=== PATIENT | male | born 1970 | race Caucasian/White ===

== ENCOUNTER 2018-06-02 18:11 | Inpatient (IN) ==
[2018-06-02] MEDS ORDERED: DUONEB (A & A) INH ONE (18:17)
[2018-06-02] MEDS ORDERED: ALBUTEROL NEB INH ONE ×2 (18:32→18:33)
[2018-06-02] MEDS ORDERED: SOLU-MEDROL IV ONE (18:33)
[2018-06-02 19:05] LABS: AGAP 14; ALBUMIN 4.7 g/dL (3.5-5.0); ALKALINE PHOSPHATASE 77 U/L (32-122); BUN 20 mg/dL (8-22); CALCIUM 9.5 mg/dL (8.8-10.2); CHLORIDE 102 mmol/L (98-107); COSMO 284; ESTIMATED GFR > 60; GLUCOSE 103 mg/dL (70-104); GOT 24 U/L (10-34); GPT 22 U/L (10-44); POTASSIUM 4.1 mmol/L (3.5-5.1); SODIUM 141 mmol/L (136-145); TCO2 26 mmol/L (25-35); TOTAL PROTEIN 7.3 g/dL (6.3-8.3)
[2018-06-02 19:06] LABS: CK PROFILE 265 U/L (24-204)
[2018-06-02 19:14] LABS: INFLUENZA A NEGATIVE (NEGATIVE); INFLUENZA B NEGATIVE (NEGATIVE)
[2018-06-02 19:17] LABS: BASO# 0.08 X1000 (0.0-0.2); BASO% 0.6 % (0.0-0.8); EOS# 0.62 X1000 (0.0-0.7); EOS% 4.9 % (0.0-10.0); HEMATOCRIT 43.4 % (42.0-52.0); HEMOGLOBIN 15.1 g/dL (14.0-18.0); IMM GRAN# 0.02 X1000 (0.0-0.04); IMM GRAN% 0.2 % (0.0-0.5); LYMPH% 18.3 % (20.5-51.1); MCH 28.4 PG (27-31); MCHC 34.8 g/dL (33-37); MCV 81.6 FL (81-99); MONO# 0.66 X1000 (0.11-0.59); MONO% 5.2 % (1.7-9.3); MPV 9.5 FL (7.4-10.4); NEUT# 8.92 X1000 (1.4-6.5); NEUT% 70.8 % (42.2-75.2); PLT 325 X1000 (130-400); RBC 5.32 XMIL (4.7-6.1)
[2018-06-02 19:23] LABS: CK INDEX 2.7 (0.0-2.5); CK-MB 7.25 ng/mL (0.0-5.0)
--- NOTE | 2018-06-02 19:28 | Diag Imaging Result Doc PS360 ---
EXAM: CHEST-2 VIEWS 06/02/2018 HISTORY: cough TECHNIQUE: PA and lateral chest COMMENT: There is minimal increased opacity in the right lower lobe compared to the previous study of 05/18/2018. Otherwise there has been no significant change. IMPRESSION: Atelectasis versus bronchopneumonia right lower lobe. Electronically signed by Carlos Og 06/02/2018 7:25 PM
--- NOTE | 2018-06-02 20:55 | EKG Report ---
Test Performed on : 06/02/2018 6:37:36 PM Test Reason : Blood Pressure : / mmHG Vent. Rate : 093 BPM Atrial Rate : 093 BPM P-R Int : 140 ms QRS Dur : 086 ms QT Int : 354 ms P-R-T Axes : 082 062 056 degrees QTc Int : 440 ms Normal sinus rhythm. Normal ECG When compared with ECG of 18-MAY-2018 21:33, (Unconfirmed) No significant change was found Unconfirmed Result
[2018-06-02] MEDS ORDERED: LEVAQUIN 750 MG/D5W 750 MG/150 ML IVPB IV ONE (21:24)
[2018-06-02] MEDS ORDERED: TYLENOL PO PRN (21:25)
[2018-06-02] MEDS ORDERED: ZOFRAN IV PRN (21:25)
[2018-06-02] MEDS: DUONEB (A & A) INH SCH (23:19)
[2018-06-03] MEDS: DUONEB (A & A) INH SCH ×6 (03:15→23:40)
[2018-06-03] MEDS ORDERED: SOLU-MEDROL IV SCH (09:00)
--- NOTE | 2018-06-03 10:49 | HISTORY AND PHYSICAL ---
PRIMARY CARE PHYSICIAN: None. CHIEF COMPLAINT: Shortness of breath and a cough that had progressively worsened over the last couple of days. HISTORY OF PRESENTING ILLNESS: This is a 48-year-old, male who presents to [facility] ER with complaints of shortness of breath and cough for 2 days that had progressively worsened. States that he was in the hospital at [facility] in September of 2017 for an asthma exacerbation that required intubation. At discharge, he was supposed to have a prescription for Symbicort and to follow up with Dr. Marshall. [facility] but he did not do any of those followups due to financial constraints and states that he would like to have help with his medications at discharge. His hospitalization last time in September of 2017 required intubation shortly for respiratory distress. Currently, he is saturating 96-98% on nasal cannula. He had a chest x-ray that showed atelectasis versus a bronchopneumonia in the right lower lobe. He has wheezing posteriorly throughout the entire lung espinoza so he has been admitted for further evaluation and treatment. PAST MEDICAL HISTORY: Asthma. PAST SURGICAL HISTORY: Appendectomy and a left knee surgery. FAMILY HISTORY: Asthma. SOCIAL HISTORY: He currently lives with family. Denies any tobacco, alcohol, or illicit drug use. ALLERGIES: Penicillin. HOME MEDICATIONS: He takes DuoNebs q.6 hours and that will be held. LABORATORY DATA: Showed a white blood cell count of 12.60, hemoglobin 15.1, hematocrit 43.4, platelets 325,000. Sodium 141, potassium 4.1, chloride 102, CO2 26, BUN of 20, creatinine 1, glucose 103. Creatine kinase was 265, CK-MB of 7.25, troponin less than 0.010. Influenza A and B were both negative. Chest x-ray showed atelectasis versus a bronchopneumonia in the right lower lobe. EKG showed normal sinus rhythm at 93. REVIEW OF SYSTEMS: He denied any fever, chills, blurred vision, dizziness, or chest pain. He has had a nonproductive cough and shortness of breath. Denied any abdominal pain, constipation, diarrhea, burning or hurting with urination. PHYSICAL EXAMINATION: VITAL SIGNS: On arrival, he had a temperature of 98.6 degrees, a pulse of 114, respirations 24, blood pressure 135/76, saturating 96% on room air. GENERAL: This is a 48-year-old, male who is sitting up in the bed and answers questions appropriately. HEENT: Normocephalic, atraumatic. Normal ENT inspection. Oropharynx and nares are clear. Eyes: Pupils are equal, round, and reactive to light and accommodation. Extraocular movements are intact. NECK: Normal inspection. Normal range of motion. LUNGS: With wheezing throughout entire posterior lung espinoza. Equal lung expansion. Chest wall movement noted. HEART: With regular rate and rhythm. No murmurs, rubs, or gallops. ABDOMEN: Soft, nontender, nondistended. Bowel sounds are present x4 quadrants. MUSCULOSKELETAL: He has 5/5 strength x4 extremities. NEUROLOGICAL: The cranial nerves 2-12 are grossly intact. ASSESSMENT: 1. Right lower lobe bronchopneumonia. 2. An acute asthma exacerbation. 3. Dyspnea. PLAN: He was admitted to the medical unit at [place]. Placed on telemetry, regular diet. Blood cultures x2 are pending. DuoNebs q.4 hours and q.2 p.r.n., Solu-Medrol 80 mg IV q.8 and we will wean as he improves, Zofran 4 mg IV q.4 hours p.r.n., Rocephin 1 gram IV q.24, azithromycin 500 mg IV q.24. Further orders after seen by attending. Dictated by CABRERA Kimble for Jeremiah Fair MD cc: CABRERA Kimble MD
[2018-06-03] MEDS ORDERED: DUONEB (A & A) INH PRN (11:12)
[2018-06-03] MEDS: ROCEPHIN 1 GM in NS 50 ML IV SCH (11:13)
[2018-06-03] MEDS: ZITHROMAX 500 MG/NS 500 MG/250 ML IVPB IV SCH (11:49)
[2018-06-03] MEDS: SOLU-MEDROL IV SCH (19:31)
--- NOTE | 2018-06-03 23:54 | HISTORY AND PHYSICAL ---
HISTORY AND PHYSICAL ADDENDUM: The patient presented with cough and shortness of breath. He has a history of asthma. He had severe shortness of breath. He has been seen. He is not on regular medications. Symbicort never got filled. He did not follow up. I think there were some insurance issues or affordability. He was admitted for right lower lobe bronchopneumonia and asthma exacerbation. This evening, he sounds very clear. I am going to decrease his steroids because it seems like he has improved. We will continue breathing treatments, encourage compliance. Social Work is working with him to get him set up with his DuoNebs. Symbicort may not be an option because he may not be able to afford that. However, we will see how things look. DISPOSITION: Pending his clinical status. We will continue to monitor, but hopefully he will be here a day or 2. This is a [id number] encounter note with Herminia Maynard. cc: Jeremiah Fair MD
[2018-06-04] MEDS: SOLU-MEDROL IV SCH ×2 (02:57→11:29)
[2018-06-04] MEDS: DUONEB (A & A) INH SCH ×3 (03:01→11:14)
[2018-06-04] MEDS ORDERED: LOVENOX SUBQ SCH (06:00)
[2018-06-04 06:34] LABS: HEMATOCRIT 40.9 % (42.0-52.0); HEMOGLOBIN 13.7 g/dL (14.0-18.0); IMM GRAN# 0.06 X1000 (0.0-0.04); IMM GRAN% 0.3 % (0.0-0.5); LYMPH# 0.63 X1000 (1.2-3.4); MCHC 33.5 g/dL (33-37); MCV 83.6 FL (81-99); MONO# 0.26 X1000 (0.11-0.59); MONO% 1.2 % (1.7-9.3); MPV 9.9 FL (7.4-10.4); NEUT% 95.5 % (42.2-75.2); PLT 316 X1000 (130-400); RBC 4.89 XMIL (4.7-6.1); RDW 13.4 % (11.5-14.5); WBC 21.05 X1000 (4.8-10.8)
[2018-06-04 06:41] LABS: AGAP 12; BUN 22 mg/dL (8-22); CHLORIDE 104 mmol/L (98-107); COSMO 286; CREATININE 0.8 mg/dL (0.7-1.2); ESTIMATED GFR > 60; GLUCOSE 155 mg/dL (70-104); POTASSIUM 4.5 mmol/L (3.5-5.1); SODIUM 140 mmol/L (136-145); TCO2 24 mmol/L (25-35)
[2018-06-04] MEDS ORDERED: PRILOSEC PO SCH (07:00)
[2018-06-04 08:07] LABS: LYMPHS 3 % (21-51); MONO 1 % (1-9); SEGS 96 % (42-75)
[2018-06-04] MEDS: ROCEPHIN 1 GM in NS 50 ML IV SCH (09:15)
[2018-06-04] MEDS: ZITHROMAX 500 MG/NS 500 MG/250 ML IVPB IV SCH (11:30)
[2018-06-04 15:04] VITALS: BP 140/74
--- NOTE | 2018-06-05 05:14 | DISCHARGE SUMMARY ---
ADMISSION DATE: 06/02/2018 DISCHARGE DATE: 06/04/2018 DISPOSITION: Home. FOLLOW-UP: Follow up with [*]the patient's PCP. CONSULTATION DURING THIS ADMISSION: None. IMAGING STUDIES OF SIGNIFICANCE: Chest x-ray did show atelectasis versus bronchopneumonia right lower lobe. ASSESSMENT: 1. Right lower lobe bronchopneumonia. 2. Acute exacerbation of asthma. 3. Intermittent asthma. 4. Leukocytosis. DISCHARGE MEDICATIONS: 1. Albuterol nebulizers. 2. Azithromycin 250 p.o. daily. 3. Prednisone 20 mg daily. 4. ProAir inhaler. PRESENTING COMPLAINT: Shortness of breath. HISTORY OF PRESENTING COMPLAINT: Mr. Sánchez is a 48-year-old male with a history of asthma which he rarely gets exacerbation, maybe once per every other month. The patient came to this to the hospital mainly because of progressively worsening shortness of breath and cough, was evaluated, found to have a right lower lobe bronchopneumonia, was admitted for further medical care. HOSPITAL COURSE: Mr. Sánchez was admitted to the medical floor. He did respond appropriately to management including bronchodilation therapy, steroids and antibiotics. Today he refers to feel a whole lot better, very minimum wheezing on his physical examinations, but otherwise he is tolerating his diet and he is not on any supplemental oxygen. He is deemed stable for discharge today, and he has been advised to follow up with a primary care doctor. All the discharge instructions have also been discussed with him and he voiced understanding. Mr. Sánchez is also advised to come to the ER or call 911 if his condition deteriorates. At the time of discharge his vitals, blood pressure is 140/74, pulse is 102, respirations 18, temperature is 97.9 degrees. Physical examination is completely unremarkable except for some faint distant wheezing in both posterior lung espinoza. TIME SPENT: For discharge is 36 minutes. cc: Martin Story MD
== END 2018-06-04 15:37 | disposition home or self-care (01) | DRG 202 ==
LOC: P.ED 18:11 → P.MEDSURG 23:11 → SUATTDRO 23:11 → P.MEDSURG 23:31
PROVIDERS: ATTEND Internal Medicine
CPT/HCPCS: 36415; 71020; 71046; 80048; 80053; 82550; 82553; 84484; 85025; 87040; 87275; 87276; 87804; 93005; 94640; 94761; 94799; 96365; 96375; 99285; A9270; J0456; J0696; J1650; J1956; J2930

== ENCOUNTER 2018-06-26 16:06 | Inpatient (IN) ==
[2018-06-26] MEDS ORDERED: DUONEB (A & A) INH ONE (16:38)
[2018-06-26] MEDS ORDERED: SOLU-MEDROL IV ONE (16:40)
[2018-06-26 17:04] LABS: BASO# 0.08 X1000 (0.0-0.2); BASO% 0.5 % (0.0-0.8); EOS# 0.85 X1000 (0.0-0.7); EOS% 5.3 % (0.0-10.0); HEMATOCRIT 45.8 % (42.0-52.0); HEMOGLOBIN 15.7 g/dL (14.0-18.0); IMM GRAN# 0.03 X1000 (0.0-0.04); IMM GRAN% 0.2 % (0.0-0.5); LYMPH# 2.94 X1000 (1.2-3.4); LYMPH% 18.5 % (20.5-51.1); MCH 27.9 PG (27-31); MCHC 34.3 g/dL (33-37); MCV 81.3 FL (81-99); MONO# 1.05 X1000 (0.11-0.59); MONO% 6.6 % (1.7-9.3); MPV 9.3 FL (7.4-10.4); NEUT# 10.96 X1000 (1.4-6.5); NEUT% 68.9 % (42.2-75.2); PLT 413 X1000 (130-400); RBC 5.63 XMIL (4.7-6.1); WBC 15.91 X1000 (4.8-10.8)
--- NOTE | 2018-06-26 17:23 | Diag Imaging Result Doc PS360 ---
CHEST-PORTABLE - 06/26/2018 INDICATION: shortness of breath COMPARISON: 06/02/2018 FINDINGS: The lungs are normally expanded and clear. Heart size and mediastinal contours are normal. No pneumothorax or pleural effusion. IMPRESSION: Negative exam. Electronically signed by Vito Real 06/26/2018 5:21 PM
[2018-06-26 17:33] LABS: INFLUENZA A NEGATIVE (NEGATIVE); INFLUENZA B NEGATIVE (NEGATIVE)
[2018-06-26 17:33] LABS: AGAP 14; ALBUMIN 4.9 g/dL (3.5-5.0); ALKALINE PHOSPHATASE 80 U/L (32-122); BUN 17 mg/dL (8-22); CALCIUM 9.7 mg/dL (8.8-10.2); CHLORIDE 99 mmol/L (98-107); CK PROFILE 199 U/L (24-204); COSMO 283; CREATININE 0.9 mg/dL (0.7-1.2); ESTIMATED GFR > 60; GLUCOSE 110 mg/dL (70-104); GOT 20 U/L (10-34); GPT 22 U/L (10-44); POTASSIUM 4.5 mmol/L (3.5-5.1); SODIUM 141 mmol/L (136-145); TCO2 28 mmol/L (25-35); TOTAL PROTEIN 7.4 g/dL (6.3-8.3)
[2018-06-26] MEDS ORDERED: ALBUTEROL NEB INH ONE ×2 (17:36→17:46)
[2018-06-26 18:51] LABS: BILIRUBIN URINE NEGATIVE (NEGATIVE); BLOOD URINE TRACE (NEGATIVE); CLARITY CLEAR (CLEAR); COLOR YELLOW; GLUCOSE URINE NEGATIVE (NEGATIVE); KETONE URINE NEGATIVE (NEGATIVE); LEUKOCYTES URINE NEGATIVE (NEGATIVE); NITRITE URINE NEGATIVE (NEGATIVE); PH URINE 6.5; PROTEIN URINE TRACE mg/dL (NEGATIVE); SP GRAVITY URINE 1.025; UROBILINOGEN URINE NORMAL
[2018-06-26 18:52] LABS: URINE BACTERIA 1+ /HFP; URINE CAST NONE SEEN /LPF; URINE CRYSTAL NONE SEEN /HPF; URINE EPITHELIAL CELLS <10 /HPF (<10); URINE RBC <10 /HPF (<10); URINE SOURCE CLEAN CATCH; URINE YEAST NONE SEEN /HPF
[2018-06-26] MEDS ORDERED: ZOFRAN IV PRN (20:09)
[2018-06-26] MEDS ORDERED: TYLENOL PO PRN (20:09)
[2018-06-26] MEDS ORDERED: ZOFRAN ODT PO PRN (20:09)
[2018-06-26] MEDS ORDERED: DUONEB (A & A) INH PRN (20:10)
[2018-06-26] MEDS ORDERED: NS 1,000 ML IV SCH (20:15)
[2018-06-26] MEDS: SOLU-MEDROL IV SCH (20:30)
--- NOTE | 2018-06-26 20:54 | PROVIDER DOCUMENTATION ---
This chart was entered by Heena Kulkarni Scribe, acting as scribe for Hema Stanley MD. HPI-Respiratory General - General Chief Complaint: Asthma Attack Stated Complaint: ASTHMA Time Seen by Provider: 06/26/18 16:14 Source: patient Allergies/Adverse Reactions: Patient Allergies Allergy/AdvReac Type Severity Reaction Status Date / Time Penicillins Allergy Mild Unknown Verified 09/29/17 08:56 Home Medications: Home Medication List Medication Instructions Recorded Confirmed Last Taken Type Albuterol 2.5MG/Ipratrop 0.5MG 3 ml INH RTQ6H 1 Days #120 neb 06/04/18 Unknown Rx [Duoneb (A & A)] Albuterol Sulfate [Proair Hfa] 8.5 gm IH Q4HR PRN #1 hfa.aer.ad 06/04/18 Unknown Rx Azithromycin [Zithromax] 250 mg PO DAILY #5 tab 06/04/18 Unknown Rx Prednisone [Deltasone] 20 mg PO DAILY #5 tab 06/04/18 Unknown Rx - History of Present Illness-Resp Nature of Presenting Problem: 48 yom presents to the ed with c/o sob and asthma sx worsening. pt sts has been using inhalers but has not helped his sx. pt sts onset was 3 days prior Quality of Pain: reports: none Severity in ED: reports: moderate Onset/Duration: reports: 3 days ago Timing: reports: still present, intermittent Exposure: reports: unknown cause Cough Quality/Degree: reports: mild Episode Frequency: frequent episodes Current Respiratory Medication Therapy: Initiated see nurses note Modifying Factors: worse with: exertion Associated Symptoms: reports: cough, hyperventilating, shortness of breath. denies: chest pain/soreness, dizziness, fever/chills, headache Similar Symptoms Previously?: Yes Recently seen or treated by another doctor?: No Review of Systems - Adult - REVIEW OF SYSTEMS - ADULT Constitutional: denies: chills, fever Eyes: denies: blurred vision, double vision Ears, Nose, Mouth & Throat: reports: no symptoms reported Cardiovascular: denies: chest pain, palpitations Respiratory: reports: see HPI, cough, dyspnea on exertion, shortness of breath. denies: wheezing Gastrointestinal: denies: abdominal pain, diarrhea, nausea, vomiting Genitourinary: reports: no symptoms reported Musculoskeletal: denies: back pain, neck pain Integumentary: reports: no symptoms reported Neurological: denies: dizziness/vertigo, headache/migraines Psychiatric: reports: no symptoms reported Endocrine: reports: no symptoms reported Hematologic/Lymphatic: reports: no symptoms reported Allergic/Immunologic: reports: see HPI, asthma All Other Systems: Reviewed and Negative Past History - Adult - PAST MEDICAL HISTORY-ADULT Review of Records: reports: Old Records Reviewed, Nursing Assessment Review, Medications Reviewed, Social history reviewed & non-contributory. Major Childhood Illnesses: reports: denies history Cardiovascular: reports: denies history Respiratory: reports: asthma Gastrointestinal: reports: denies history Genitourinary: reports: denies history Musculoskeletal: reports: denies history Hand Dominance: Right Handed Neurological: reports: denies history Endocrine/Immune: reports: denies history Other Conditions: reports: denies history - PRIOR SURGERIES/PROCEDURES Surgical/Procedure History: reports: appendectomy, orthopedic (extremity), other (left lower leg wound several years ago) - IMMUNIZATION STATUS Childhood Immunizations: See Nurse Assessment Flu Vaccine: See Nurse Assessment - FAMILY HISTORY Family History: reviewed, not pertinent - SOCIAL HISTORY Smoking: denies Substance Use: denies Living Situation: family Physical Exam-General - PHYSICAL EXAM-ADULT Initial Vital Signs Reviewed: Yes - CONSTITUTIONAL General Appearance: alert, severe distress - EYES Eyes: PERRL/EOMI, pink conjunctivae - HEAD, EARS, NOSE, MOUTH & THROAT HENMT: normocephalic/atraumatic, moist mucous membranes - NECK Neck: full range of motion, supple, normal inspection - RESPIRATORY Respiratory: chest non-tender, respiratory distress, decreased breath sounds, accessory muscle use, increased rate - CARDIOVASCULAR Cardiovascular: normal peripheral pulses, tachycardia (120) - GASTROINTESTINAL (ABDOMEN) Abdominal Exam: normal bowel sounds, non tender, soft - LYMPHATIC Lymphatic: no adenopathy - MUSCULOSKELETAL Back Exam: normal inspection, no CVA tenderness, no vertebral tenderness Extremity: normal range of motion, non-tender, normal gait - SKIN Integumentary: normal color, normal turgor, warm/dry - NEUROLOGIC Neurologic: grossly normal, no motor/sensory deficits - PSYCHIATRIC Psych/Mental Status: normal mood/affect, normal thought content, normal thought process, oriented x 3 Progress - PLAN OF CARE/RESULTS Progress/Plan/Lab Results: Vital Signs - 8 hr 06/26/18 16:09 06/26/18 16:39 06/26/18 17:23 Temperature 98.5 F Pulse Rate 120 H 128 H 129 H Respiratory Rate 16 16 17 Blood Pressure 178/90 185/124 121/101 O2 Sat by Pulse Oximetry 91 L 98 93 L 06/26/18 17:25 06/26/18 17:45 06/26/18 17:52 Temperature Pulse Rate 106 H 117 H 122 H Respiratory Rate 26 H 22 20 Blood Pressure 146/96 O2 Sat by Pulse Oximetry 94 L 95 06/26/18 18:16 06/26/18 19:09 06/26/18 19:53 Temperature Pulse Rate 128 H 134 H 121 H Respiratory Rate 14 27 H 27 H Blood Pressure 145/120 127/100 130/94 O2 Sat by Pulse Oximetry 95 93 L 93 L Laboratory Results - last 24 hr 06/26/18 06/26/18 06/26/18 16:49 16:52 16:52 WBC 15.91 H RBC 5.63 Hgb 15.7 Hct 45.8 MCV 81.3 MCH 27.9 MCHC 34.3 RDW Std Deviation 13.0 Plt Count 413 H MPV 9.3 Immature Gran % (Auto) 0.2 Neut % (Auto) 68.9 Lymph % (Auto) 18.5 L [place] % (Auto) 6.6 Eos % (Auto) 5.3 Baso % (Auto) 0.5 Immature Gran # (Auto) 0.03 Neut # (Auto) 10.96 H Lymph # (Auto) 2.94 [place] # (Auto) 1.05 H Eos # (Auto) 0.85 H Baso # (Auto) 0.08 Sodium 141 Potassium 4.5 Chloride 99 Carbon Dioxide 28 Anion Gap 14 BUN 17 Creatinine 0.9 Estimated GFR/1.73 m2 > 60 BUN/Creatinine Ratio 19 Glucose 110 H Calculated Osmolality 283 Calcium 9.7 Total Bilirubin 0.50 AST 20 ALT 22 Alkaline Phosphatase 80 Creatine Kinase 199 Troponin T Ngt-A-Dolbsabsica Pept Total Protein 7.4 Albumin 4.9 Globulin 3.0 Albumin/Globulin Ratio 2.0 Plasma Lactate Urine Source Urine Color Urine Clarity Urine pH Ur Specific [place] Urine Protein Urine Ketones Urine Blood Urine Nitrite Urine Bilirubin Urine Urobilinogen Urine Microscopic RBC Urine WBC Ur Epithelial Cells Urine Crystals Urine Bacteria Urine Casts Urine Yeast Urine Glucose Influenza A (Rapid) NEGATIVE Influenza B (Rapid) NEGATIVE 06/26/18 06/26/18 06/26/18 16:52 16:52 16:52 WBC RBC Hgb Hct MCV MCH MCHC RDW Std Deviation Plt Count MPV Immature Gran % (Auto) Neut % (Auto) Lymph % (Auto) [place] % (Auto) Eos % (Auto) Baso % (Auto) Immature Gran # (Auto) Neut # (Auto) Lymph # (Auto) [place] # (Auto) Eos # (Auto) Baso # (Auto) Sodium Potassium Chloride Carbon Dioxide Anion Gap BUN Creatinine Estimated GFR/1.73 m2 BUN/Creatinine Ratio Glucose Calculated Osmolality Calcium Total Bilirubin AST ALT Alkaline Phosphatase Creatine Kinase Troponin T < 0.010 Gno-V-Ppcweiwetvd Pept 31 Total Protein Albumin Globulin Albumin/Globulin Ratio Plasma Lactate 1.8 Urine Source Urine Color Urine Clarity Urine pH Ur Specific [place] Urine Protein Urine Ketones Urine Blood Urine Nitrite Urine Bilirubin Urine Urobilinogen Urine Microscopic RBC Urine WBC Ur Epithelial Cells Urine Crystals Urine Bacteria Urine Casts Urine Yeast Urine Glucose Influenza A (Rapid) Influenza B (Rapid) 06/26/18 18:15 WBC RBC Hgb Hct MCV MCH MCHC RDW Std Deviation Plt Count MPV Immature Gran % (Auto) Neut % (Auto) Lymph % (Auto) [place] % (Auto) Eos % (Auto) Baso % (Auto) Immature Gran # (Auto) Neut # (Auto) Lymph # (Auto) [place] # (Auto) Eos # (Auto) Baso # (Auto) Sodium Potassium Chloride Carbon Dioxide Anion Gap BUN Creatinine Estimated GFR/1.73 m2 BUN/Creatinine Ratio Glucose Calculated Osmolality Calcium Total Bilirubin AST ALT Alkaline Phosphatase Creatine Kinase Troponin T Rtj-V-Puougrecujm Pept Total Protein Albumin Globulin Albumin/Globulin Ratio Plasma Lactate Urine Source CLEAN CATCH Urine Color YELLOW Urine Clarity CLEAR Urine pH 6.5 Ur Specific [place] 1.025 Urine Protein TRACE A Urine Ketones NEGATIVE Urine Blood TRACE Urine Nitrite NEGATIVE Urine Bilirubin NEGATIVE Urine Urobilinogen NORMAL Urine Microscopic RBC <10 Urine WBC NEGATIVE Ur Epithelial Cells <10 Urine Crystals NONE SEEN Urine Bacteria 1+ Urine Casts NONE SEEN Urine Yeast NONE SEEN Urine Glucose NEGATIVE Influenza A (Rapid) Influenza B (Rapid) Orders Category Date Time Status Admit - [facility] Routine AdmDCTranf 06/26/18 20:07 Active Activity - Up with Assistance ORDERED Care 06/26/18 20:07 Active Cardiac Monitoring DIRECTED Care 06/26/18 18:01 Active Intake and Output-Strict ORDERED Care 06/26/18 20:07 Active Notify MD of + Sepsis Screen NOW Care 06/26/18 18:01 Active Notify Physician As Ordered Care 06/26/18 18:01 Active Saline Loc DIRECTED Care 06/26/18 20:07 Active Turn, Cough and Deep Breathe Q4HR.AWAKE Care 06/26/18 20:07 Active Vital Signs Order Q 8-HR ASSESS Care 06/26/18 20:07 Active Z-Document. for Tele Applied ORDERED Care 06/26/18 20:08 Active Regular Diet Diet 06/26/18 20:08 Active CHEST-PORTABLE [RAD] Stat Exams 06/26/18 16:40 Completed BLOOD CULTURE [BLDCUL] Stat Lab 06/26/18 18:01 Ordered CBC WITH ELECTRONIC DIFF [HEME] Stat Lab 06/26/18 16:52 Completed CBC WITH NO DIFF [HEME] Routine Lab 06/27/18 06:00 Ordered CK PROFILE [SP CHEM] Stat Lab 06/26/18 16:52 Completed COMPREHENSIVE METABOLIC PANEL [CHEM] Stat Lab 06/26/18 16:[address] Stat Lab 06/26/18 16:49 Completed LACTATE, PLASMA [CHEM] Lab 06/26/18 21:15 Uncollected LACTATE, PLASMA [CHEM] Lab 06/27/18 00:15 Uncollected LACTATE, PLASMA [CHEM] Stat Lab 06/26/18 16:52 Completed PRO B-NATRIURETIC PEPTIDE Stat Lab 06/26/18 16:52 Completed TROPONIN T Stat Lab 06/26/18 16:[address] W/POSS RFLX CULT [URINALYSIS] Stat Lab 06/26/18 18:15 Completed 0.9% Sodium Chloride Inj [Ns] 1,000 ml Med 06/26/18 20:15 Active IV 75 mls/hr Acetaminophen [Tylenol] Med 06/26/18 20:09 Active 650 mg PO Q6H PRN PRN Albuterol 2.5MG/Ipratrop 0.5MG [Duoneb (A & A)] Med 06/26/18 16:38 Discontinue d 3 ml INH NOW ONE Albuterol 2.5MG/Ipratrop 0.5MG [Duoneb (A & A)] Med 06/26/18 20:10 Active 3 ml INH Q2H PRN PRN Albuterol 2.5MG/Ipratrop 0.5MG [Duoneb (A & A)] Med 06/26/18 23:30 Active 3 ml INH RTQ4H Albuterol [Albuterol Neb] Med 06/26/18 17:36 Discontinued 2.5 mg INH NOW ONE Albuterol [Albuterol Neb] Med 06/26/18 17:46 Discontinued 5 mg INH NOW ONE Methylprednisolone Sod Succ [Solu-Medrol] Med 06/26/18 16:40 Discontinued 125 mg IV NOW ONE Methylprednisolone Sod Succ [Solu-Medrol] Med 06/26/18 20:15 Active 60 mg IV Q8H Ondansetron Odt [Zofran Odt] Med 06/26/18 20:09 Active 4 mg PO Q4-6H PRN PRN Ondansetron [Zofran] Med 06/26/18 20:09 Active 4 mg IV Q4-6H PRN PRN Aerosol Treatments Routine Ot 06/26/18 16:40 Completed Aerosol Treatments Routine Ot 06/26/18 17:36 Completed Aerosol Treatments Routine Ot 06/26/18 20:10 Completed Aerosol Treatments Stat Ot 06/26/18 16:40 Completed Aerosol Treatments Stat Ot 06/26/18 17:36 Completed Aerosol Treatments Stat Ot 06/26/18 17:46 Completed Aerosol Treatments Stat Ot 06/26/18 20:10 Completed Incentive Spirometer Q4HR.AWAKE Ot 06/26/18 21:00 Completed Incentive Spirometer Q4HR.AWAKE Ot 06/27/18 01:00 Completed Incentive Spirometer Q4HR.AWAKE Ot 06/27/18 05:00 Completed Incentive Spirometer Q4HR.AWAKE Ot 06/27/18 09:00 Completed Incentive Spirometer Q4HR.AWAKE Ot 06/27/18 13:00 Completed Incentive Spirometer Q4HR.AWAKE Ot 06/27/18 17:00 Completed Oxygen Device Routine Ot 06/26/18 20:07 Completed Peak Flow BID Ot 06/26/18 21:00 Completed Peak Flow BID Ot 06/27/18 09:00 Completed Telemetry [OM.EQ] Routine Oth 06/26/18 20:07 Active EKG [EKG] Stat Ther 06/26/18 16:43 Ordered Transfer/Admit Order [TRANSFER] Routine Transfer 06/26/18 20:10 Ordered Result Diagrams: 06/26/18 16:52 06/26/18 16:52 - REASSESSMENT Reassessment #1 Time Reassessed: 20:00 Status: other (patient with improved oxygen saturations on nasal canulla; however with significant wheezes and rhonchi bilaterally after several rounds of albuterol and ipratropium) - XRAY 1 XRAY: Bilateral XRAY Study: Chest Impression: See EMR Report (CHEST-PORTABLE - 06/26/2018 INDICATION: shortness of breath COMPARISON: 06/02/2018 FINDINGS: The lungs are normally expanded and clear. Heart size and mediastinal contours are normal. No pneumothorax or pleural effusion. IMPRESSION: Negative exam. Electronically signed by Vito Real 06/26/2018 5:21 PM 06/26/18 1721 Interpreting Physician: Vito Real MD Dictated Date/Time: 06/26/18 1720 cc: Hema Stanley MD; None,PCP) - CONSULTS/PCP/HOSPITALIST Notification #1 *Consult/PCP/Hospitalist*: Dr. Oliva Time Discussed: 20:10 Consult Disposition: Admit Departure - Departure Date of Disposition Decision: 06/26/18 Time of Disposition Decision: 20:12 DIAGNOSIS: Asthma exacerbation Qualifiers: Asthma severity: unspecified severity Asthma persistence: unspecified Qualified Code(s): J45.901 - Unspecified asthma with (acute) exacerbation Disposition: ADMITTED INPATIENT 09 Certified Medical Emergency: Emergent Condition: Critical - Critical Care Note This patient required my direct & personal management of CC.: Yes Total Time (mins): 37 Critical Care Statement: This patient required my direct personal management to treat or rule out processes, the absence of which, could potentiallly result in sudden, clinically significant life or limb threatening deterioration. Attestation - Physician/ TARIQ Attestation Patient care was provided by Advanced Practice Provider:: No The physician spent face to face time with patient:: Yes Advanced Practice Provider documentation review:: Supervising physician onsite and consulted in the evaluation and care of this patient. The physician did have a face to face encounter with the patient. This chart was documented by the indicated scribe, (Heena Kulkarni Scribe) and accurately reflects the services I performed and decisions made by me, Hema Stanley MD, as attested by the provider's signature.
[2018-06-26] MEDS: DUONEB (A & A) INH SCH (22:46)
--- NOTE | 2018-06-27 01:11 | HISTORY AND PHYSICAL ---
CHIEF COMPLAINT: Shortness of breath. HISTORY OF PRESENT ILLNESS: Patient is a 48-year-old male who has a known history of asthma, takes albuterol nebulized treatments occasionally at home. Notes that he started using his inhalers a couple days ago, but it has not helped. Does not take his inhalers on any regular basis and has no long-acting medication. ALLERGIES: Penicillin causing unknown reaction. MEDICATIONS: ProAir. He has recently been on prednisone but it has not helped. REVIEW OF SYSTEMS: As noted above. Positive increased work of breathing, shortness of breath, cough, congestion. Denies any true chest pains or palpitations. Denies any dizziness, nasal congestion, ear pain, headaches, blurred vision, change in vision. Denies any diarrhea, constipation, melena, hematochezia. Denies any fevers or chills. PAST MEDICAL HISTORY: Asthma. SURGICAL HISTORY: Appendectomy, orthopedic surgery. FAMILY HISTORY: Positive for asthma. SOCIAL HISTORY: Patient does not smoke or drink. He lives at home. He works as a journeyman painter. Notes that he does use proper ventilation while he is painting. PHYSICAL EXAMINATION: VITAL SIGNS: Temperature 98 degrees, pulse 120s, respiratory 16, BP 178/90, saturation 98% on 2 L. GENERAL: Patient is awake, alert. He is in mild current respiratory distress. He is pleasant to talk with. HEENT: Normocephalic. NECK: Supple. CARDIOVASCULAR: Tachycardia. No murmurs. CHEST: Positive wheezing, mildly labored. ABDOMEN: Soft, nondistended. EXTREMITIES: Moves all extremities. NEUROLOGIC: No changes. ASSESSMENT: 1. Leukocytosis, likely secondary to his recent steroid usage. 2. Supraventricular tachycardia. 3. Hypertension. 4. Asthma. PLAN: We will admit patient to the hospital. Place him on IV Solu-Medrol. Continue him on oxygen and breathing treatments. We will not start antibiotics as he has no current infectious type symptoms. cc: Ja Oliva MD
[2018-06-27] MEDS: DUONEB (A & A) INH SCH ×3 (03:24→10:54)
[2018-06-27] MEDS: SOLU-MEDROL IV SCH ×2 (04:09→12:47)
[2018-06-27 05:28] VITALS: BP 139/77
[2018-06-27 06:17] LABS: MCH 28.1 PG (27-31); MCHC 34.1 g/dL (33-37); MCV 82.4 FL (81-99); MPV 9.5 FL (7.4-10.4); RBC 5.34 XMIL (4.7-6.1); RDW 13.1 % (11.5-14.5); WBC 8.7 X1000 (4.8-10.8)
--- NOTE | 2018-06-27 08:30 | EKG Report ---
Test Performed on : 06/26/2018 7:34:07 PM Test Reason : chest pain Blood Pressure : / mmHG Vent. Rate : 123 BPM Atrial Rate : 123 BPM P-R Int : 128 ms QRS Dur : 086 ms QT Int : 322 ms P-R-T Axes : 078 054 058 degrees QTc Int : 460 ms Sinus tachycardia. Otherwise normal ECG When compared with ECG of 02-JUN-2018 18:37, No significant change was found Unconfirmed Result
--- NOTE | 2018-06-28 07:28 | DISCHARGE SUMMARY ---
ADMISSION DATE: 06/26/2018 DISCHARGE DATE: 06/27/2018 DIAGNOSES: 1. Asthma, acute asthma exacerbation. 2. Leukocytosis, likely secondary to recent steroid use. 3. Hypertension. 4. Asthma. 5. Tachycardia, resolved. DIAGNOSTICS: 1. On 06/26/2018, chest x-ray revealed a negative exam. Lungs are normally expanded and clear. Heart size and mediastinal contours are normal. No pneumothorax or pleural effusion. 2. Blood cultures x2 are pending. HOSPITAL COURSE: Mr. Roberson presented to the emergency room complaining of 3 days of shortness of breath with a worsening asthma attack. He has recently been on steroids with no improvement. On arrival to the emergency room, his O2 saturation was 91% on room air. He was also noted to have heart rates in the 120 to 130 range. This has resolved. He was treated with DuoNebs q.4 hours or q.2 hours p.r.n., and steroids to taper. Thankfully, he has improved and is ready for discharge. DISCHARGE PHYSICAL EXAMINATION: Cardiovascular: Regular rate and rhythm. S1 and S2 are appreciated. Extremities: He has no lower extremity edema, with peripheral pulses palpable x4 extremities. Calves are nontender to palpation. Pulmonary: He has got some scattered wheezes throughout, although these have greatly improved. Chest rises and falls symmetric with respiration. Chest wall is nontender to palpation. There is no increased work of breathing noted. Gastrointestinal: Abdomen is soft, nontender, nondistended, with bowel sounds in all 4 quadrants. Skin: Warm and dry. DISCHARGE MEDICATIONS: 1. ProAir inhaler 1 puff q.4 hours p.r.n. wheezing. 2. Medrol Dosepak to take as directed. 3. DuoNebs q.6 hours as directed. FOLLOWUP: He needs to follow up with his primary care physician in the next week. If he has none, he will be given the number to call to have assistance with physicians that are taking new patients. He has been instructed to call to be seen sooner or return to the emergency room for any syncope, dizziness, chest pain, palpitations, any increasing shortness of breath, wheezing, any nausea, vomiting, diarrhea, constipation, black or bloody vomitus or stools, or any questions or concerns that he may have. He is being discharged home in stable condition with family members. TIME SPENT: This is a greater than 30 minute discharge. Peak flows were obtained during the hospitalization. Dictated by CABRERA Barakat for Ja Oliva MD This chart was documented by, CABRERA Barakat and accurately reflects the services performed, treatment plan and medical decisions as attested by the providers signature Ja Oliva MD. cc: CABRERA Barakat MD [facility]
--- NOTE | 2018-06-28 10:58 | DISCHARGE SUMMARY ---
ADMISSION DATE: 06/26/2018 DISCHARGE DATE: 06/27/2018 DISCHARGE DIAGNOSES: 1. Asthma exacerbation. 2. Leukocytosis. 3. Supraventricular tachycardia. 4. Hypertension. CONSULTATIONS: None. PROCEDURES: None. BRIEF HOSPITAL COURSE: The patient is a 48-year-old male who presented to the hospital, treated in the usual fashion, placed on Solu-Medrol, which he tolerated very well. On discharge, he has had marked improvement. He is no longer wheezing. His breathing is improved. He has good air movement. The patient states that he is feeling better and would like to go home. DISPOSITION: The patient will be discharged home. He will continue on Medrol Dosepak. I was able to find Breo samples for a month from the office. 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 Discussed with him the importance of using a spacer with his MDIs, as well as avoiding all triggers, including smoke, perfume, chemicals, etc. TIME SPENT: Greater than 30 minutes were spent in total care. cc: Ja Oliva MD
== END 2018-06-27 13:10 | disposition home or self-care (01) | DRG 202 ==
LOC: P.ED 16:06 → P.MEDSURG 20:29
PROVIDERS: ATTEND Family Medicine
CPT/HCPCS: 71010; 71045; 80053; 81001; 82550; 83605; 83880; 84484; 85025; 85027; 87040; 87275; 87276; 87804; 93005; 94640; 94799; 96374; 96376; 99285; A9270; J2930; J7030